=== PATIENT | male | born 1960 | race Caucasian/White ===

== ENCOUNTER 2025-07-06 13:56 | Outpatient (CLI) | payer OTHER | END 2025-07-06 13:57 | disposition home or self-care (01) | LOC: CSHMRI 13:56 | PROVIDERS: ATTEND Orthopaedic Surgery | DX: M17.11 Unilateral primary osteoarthritis, right knee (principal); T85.612A Breakdown (mechanical) of permanent sutures, initial encounter; S83.281A Other tear of lateral meniscus, current injury, right knee, initial encounter; S83.241A Other tear of medial meniscus, current injury, right knee, initial encounter; M25.461 Effusion, right knee ==